=== PATIENT | male | born 1985 | race Caucasian/White ===

== ENCOUNTER 2023-10-12 17:53 | Emergency (ER) | payer MEDICAID, SELFPAY ==
--- NOTE | ~2023-10-12 | XR_ITS ---
EXAMINATION: XR CHEST CLINICAL INFORMATION: Chest pain COMPARISON: None available. TECHNIQUE: 2 views of the chest were obtained. FINDINGS: No significant abnormality is noted involving the heart, lungs, mediastinum, bony thorax or soft tissues. XR/XR chest 2V IMPRESSION: Unremarkable examination.
--- NOTE | 2023-10-12 17:54 | ECG_ITS ---
Test Reason : cp Blood Pressure : / mmHG Vent. Rate : 106 BPM Atrial Rate : 106 BPM P-R Int : 130 ms QRS Dur : 102 ms QT Int : 352 ms P-R-T Axes : 065 063 005 degrees QTc Int : 467 ms Sinus tachycardia Otherwise normal ECG No previous ECGs available Referred By: Sunshine Lei Electronically Signed By:Joshua Morin
[2023-10-12 18:23] VITALS: BP 147/107; PULSE 81; RESP 16; TEMP 36.6; O2SAT 100; BMI 27.9
--- NOTE | 2023-10-12 18:23 | ED.GENADULT ---
HPI - General Adult General Chief complaint: Chest Pain Stated complaint: chest pain, SOB Time Seen by Provider: 10/13/23 05:56 History of Present Illness HPI narrative: Patient was seen during downtime, please see paper record Related Data Allergies Allergy/AdvReac Type Severity Reaction Status Date / Time No Known Allergies Allergy Verified 10/12/23 18:23 [facility] Social History Social History Advance Directives: No Advance Directives Information Provided: No Physical Exam ED Vital Signs: Vital Signs - 24 hr 10/12/23 18:23 10/12/23 23:34 Temperature 97.9 F 97.7 F Pulse Rate 81 85 Respiratory Rate 16 16 Blood Pressure 147/107 H 151/94 H Pulse Oximetry 100 100 Oxygen Delivery Method Room Air Room Air BMI result Body Mass Index 27.9 Course Course Course Narrative: This is an RME: Additional HPI, ROS, PE not included below will be deferred to primary provider. This is a [id number]-male, with no known medical problems (however does not go to a doctor), who presents to the ER with complaints of chest pain and shortness of breath. Pulsating left upper chest pain into his left shoulder. Was driving and felt dull pain. Pain comes and goes. Does not have pain now. Dull pulsating sensation. Endorsing some lightheadedness Plan: Labs, EKG, CXR Medical Decision Making Medical Decision Making MDM Narrative: Patient seen during downtime, please see paper record Hypertension, anxiety. -patient reports hypertension for over a year, unable to see a PCP due to health insurance issues. -asymptomatic at this time, willing to start blood pressure medications. Differential Diagnosis Differential Diagnoses: The differential diagnosis associated with the presentation includes (Anxiety, hypertension, hypertensive urgency) Admission/Observation Consideration of admission/observation: Escalation of care including admission/observation considered (New diagnosis hypertension, unable to follow-up with PCP, will follow up with urgent care/walk-in clinic) Lab Data 10/12/23 18:41 10/12/23 18:41 Labs: Lab Results 10/12/23 Range/Units 18:41 WBC 4.9 (4.8-10.8) X10*3/uL RBC 5.59 (4.60-5.80) X10*6/uL Hgb 15.6 (14.0-18.0) g/dl Hct 46.2 (42.0-52.0) % MCV 82.6 (80.0-98.0) fL MCH 27.9 (27.0-33.0) pg MCHC 33.8 (31.0-36.0) g/dl RDW 12.3 (11.0-16.0) % Plt Count 210 (160-400) X10*3/uL MPV 10.3 (9.4-12.4) fL Immature Gran % (Auto) 0.4 (0.0-0.4) % Neut % (Auto) 54.9 (45-73) % Lymph % (Auto) 34.4 (20-40) % Bleck[place] % (Auto) 6.0 (2-11) % Eos % (Auto) 3.3 (0-4) % Baso % (Auto) 1.0 (0-2) % Lymph # (Auto) 1.7 (1.2-4.9) X10*3/uL [place] # (Auto) 0.3 (0.1-1.2) X10*3/uL Eos # (Auto) 0.2 (0.0-0.4) X10*3/uL Baso # (Auto) 0.1 (0.0-0.2) X10*3/uL Abs Immat Gran (auto) 0.02 (0.00-0.03) X10*3/uL Absolute Neuts (auto) 2.7 (2.0-8.3) x10*3/uL Absolute Nucleated RBC 0.000 (0.0-0.012) X10*3/uL Nucleated RBC % (auto) 0.0 (0.0-0.2) /100WBC Sodium 139 (135-145) mmol/L Potassium 4.0 (3.3-5.1) mmol/L Chloride 104 (96-108) mmol/L Carbon Dioxide 27 (22-29) mmol/L Anion Gap 12 (12-20) BUN 12 (9-16) mg/dL Creatinine 1.04 (0.5-1.4) mg/dL Estim Creat Clear Calc 108.7 Estimated GFR > 60 Random Glucose 110 (60-115) mg/dL Calcium 9.7 (8.4-10.2) mg/dL Magnesium 1.9 (1.6-2.6) mg/dL Total Bilirubin 0.4 (0.0-1.0) mg/dL Direct Bilirubin 0.2 (0.0-0.5) mg/dL AST 20 (5-37) U/L ALT 42 H (0-40) U/L Alkaline Phosphatase 73 (39-117) U/L Troponin I High Sens < 2.7 (<3.5-35.0) ng/L Total Protein 7.5 (6.5-8.0) g/dL Albumin 4.6 (3.5-5.0) g/dL Lipase 14 (8-78) U/L Critical Care Time Critical Care Time Critical Care Time: Yes Total Critical Care Time: 35 Attestation: I have personally provided critical care time. Time includes review of lab data, radiology results, discussion with consultants, and monitoring for potential decompensation. Intervention performed as documented. Discharge Plan Discharge Clinical Impression: Atypical chest pain, Hypertension Patient Disposition: Home, Self-Care
[2023-10-12 18:51] LABS: MANUAL DIFF FLAG NO
[2023-10-12 18:54] LABS: Basophils Absolute Auto 0.1 X10*3/uL (0.0-0.2); Eosinophils Absolute Auto 0.2 X10*3/uL (0.0-0.4); Eosinophils Percent Auto 3.3 % (0-4); Hematocrit 46.2 % (42.0-52.0); Hemoglobin 15.6 g/dl (14.0-18.0); Imm Gran Abs Auto 0.02 X10*3/uL (0.00-0.03); Imm Gran Pct Auto 0.4 % (0.0-0.4); Lymphocytes Absolute Auto 1.7 X10*3/uL (1.2-4.9); Lymphocytes Percent Auto 34.4 % (20-40); Mean Corpuscular HGB Conc 33.8 g/dl (31.0-36.0); Mean Corpuscular Hemoglobin 27.9 pg (27.0-33.0); Mean Corpuscular Volume 82.6 fL (80.0-98.0); Mean Platelet Volume 10.3 fL (9.4-12.4); Monocytes Absolute Auto 0.3 X10*3/uL (0.1-1.2); Neutrophils Absolute Auto 2.7 x10*3/uL (2.0-8.3); Neutrophils Percent Auto 54.9 % (45-73); Platelet Count 210 X10*3/uL (160-400); Red Blood Count 5.59 X10*6/uL (4.60-5.80); Red Cell Distribution Width 12.3 % (11.0-16.0); White Blood Count 4.9 X10*3/uL (4.8-10.8)
[2023-10-12 19:09] LABS: Alanine Aminotransferase 42 U/L (0-40); Albumin Level 4.6 g/dL (3.5-5.0); Alkaline Phosphatase 73 U/L (39-117); Anion Gap 12 (12-20); Aspartate Amino Transferase 20 U/L (5-37); Bilirubin Direct 0.2 mg/dL (0.0-0.5); Bilirubin Total 0.4 mg/dL (0.0-1.0); Blood Urea Nitrogen 12 mg/dL (9-16); Calcium 9.7 mg/dL (8.4-10.2); Carbon Dioxide 27 mmol/L (22-29); Chloride 104 mmol/L (96-108); Creatinine Clr Calc Pharmacy 108.7; Estimated Glomerular Filt Rate > 60; Glucose Random 110 mg/dL (60-115); Lipase 14 U/L (8-78); Magnesium 1.9 mg/dL (1.6-2.6); Sodium 139 mmol/L (135-145); Total Protein 7.5 g/dL (6.5-8.0)
[2023-10-12 19:16] LABS: Troponin-I High Sensitivity < 2.7 ng/L (<3.5-35.0)
[2023-10-12 23:34] VITALS: BP 151/94; PULSE 85; RESP 16; TEMP 36.5; O2SAT 100
== END 2023-10-13 05:56 | disposition home or self-care (01) ==
PROVIDERS: Physician Assistant Medical; Emergency Provider Emergency Medicine
DX: R07.89 Other chest pain (principal); I10 Essential (primary) hypertension; R06.02 Shortness of breath
CPT/HCPCS: 36415; 71046; 80048; 80076; 83690; 83735; 84484; 85025; 93005; 99283; 99284

== ENCOUNTER → 2023-10-12 17:54 | Outpatient (BNV) | payer MEDICAID, SELFPAY | PROVIDERS: Emergency Provider Emergency Medicine; Visit Provider Internal Medicine Cardiovascular Disease | DX: R07.9 Chest pain, unspecified (principal) | CPT/HCPCS: 93010 ==

== ENCOUNTER 2023-10-25 08:46 | Outpatient (AMB) | payer OTHER, SELFPAY ==
--- NOTE | 2023-10-25 08:51 | MHC.PC.OV ---
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 Requesting sleep study. 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 He is transferring from [facility] (last seen about 10 years ago). He has a significant past medical history of hypertension, tobacco use, IBS, anxiety and depression. CV: Blood pressure today in the office is 126/72. He states at home is normal and yesterday was 115/72. He is currently on hydrochlorothiazide 25 mg. He was seen in the ER on 10/11 with complaints of atypical chest pain and was noted to have hypertension. Chest x-ray and labs were overall WNL, aside from a slightly elevated lft. There he was started on the hydrochlorothiazide. He does not like how much he urinates. He is wonders if he could try propranolol because his brother is on this for anxiety and his htn. -has not needed an inhaler since childhood for one episode of wheezing. -he does report witnessed apneic events by brother and roommate. -denies any cp, sob, palpitations since ED. Psych: He states his anxiety is currently exacerbated. He states that he has had this since childhood and when he gets anxious feels like his heart is racing but it really is not. He states that he is checked it before and it has been between 90 and 100. He is stressed financially. 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 He has not been on medications since childhood. He states that he has a hx of anxiety and depression for most of his life. He was on wellbutrin, prozac, and clonidine in the past (together and separately). He has never been hospitalized. No hx of SI/HI. Denies visual and auditory hallucinations. His brother has schizophrenia. He used to follow with a therapist and does not feel that he needs to see . Derm: He states that he has patches of eczema that have been present since winter. He has been using Eucerin cream without significant improvement. He states he has a little bit behind his left ear and on the sides of his axillary region. There is no pain. There is slight itching. Denies any change in hygiene products, recent travel or contacts with similar symptoms. [facility] Medical History (Updated 10/25/23 @ 09:46 by Tabitha Fabian PA-C) Atopic dermatitis Witnessed episode of apnea Elevated LFTs HTN (hypertension), benign Hernia Family History (Updated 10/25/23 @ 09:14 by Luz Montoya CMA) Mother HTN (hypertension) Substance abuse Mental disorder Father HTN (hypertension) AA (alcohol abuse) Substance abuse Mental disorder Paternal Grandmother HTN (hypertension) Hypercholesterolemia Brother Substance abuse Mental disorder Social History Housing: Apartment Patient Tobacco Use Status: Former Tobacco user Cigarette Packs Per Day: 0.5 Cigarettes Per Day: 0.5 Years Smoked: 15 e-Cigarette/Vaping Use: Currently Using service: No Current occupational status: employed Current occupation: [employer] Current occupational exposures/hazards: No Cognitive needs: No Hearing needs: No Vision needs: No Questionnaire PHQ-9 Over the last 2 weeks, how often have you been bothered by any of the following problems? 1. Little interest or pleasure in doing things: several days 2. Feeling down, depressed, or hopeless: more than half the days 3. Trouble falling or staying asleep, or sleeping too much: more than half the days 4. Feeling tired or having little energy: several days 5. Poor appetite or overeating: several days 6. Feeling bad about yourself - or that you are a failure or have let yourself or your family down: several days 7. Trouble concentrating on things, such as reading the newspaper or watching television: several days 8. Moving or speaking so slowly that other people could have noticed. Or the opposite - being so fidgety or restless that you have been moving around a lot more than usual: several days 9. Thoughts that you would be better off or of hurting yourself in some way: not at all Total score: 10 Depression Screening Interpretation: Positive Depression Screening Follow-up: Existing condition, New Medication prescribed and Follow-up Visit Requested Depression Screening Done: Yes 82405 - PHQ-9 Billing: Yes Source: Developed by Drs. Norman Cobb, Allie Stahl, Dash Barajas and colleagues, with an educational renate from [employer]. Thrive Questionnaire Date Thrive assessed: 10/25/23 I am a: Patient What is your living situation today?: I have a steady place to live Within the past 12 months, did the food you bought not last and you didn't have the money to get more?: Never true Do you have trouble paying for medicines?: No Do you have trouble getting transportation to medical appointments?: No Do you have trouble paying your heating and electricity bill?: No Do you have trouble taking care of your child, family member or friend?: No Do you have trouble with day-to-day activities such as bathing, preparing meals, shopping, managing finances, etc.?: No Are you currently unemployed and looking for a job?: No Are you interested in more education?: No Please select the resources that you would like help with: None Currently or been in a relationship where the following occur: no concerns reported THRIVE Score: 0 AUDIT C Alcohol Use Questionnaire (AUDIT-C) 1. How often do you have a drink containing alcohol?: Monthly or less 2. How many drinks containing alcohol do you have on a typical day when you are drinking?: 3 or 4 3. How often do you have six or more drinks on one occasion?: Never Total Score: 2 ELLEN-7 AMB Questionnaire ELLEN-7 Date ELLEN - 7 assessed: 10/25/23 Feeling nervous, anxious, or on edge: 2 = More than half the days Not being able to stop or control worryin = More than half the days Worrying too much about different things: 2 = More than half the days Trouble relaxin = More than half the days Being so restless that it is hard to sit still: 1 = Several days Becoming easily annoyed or irritable: 2 = More than half the days Feeling afraid as if something awful might happen: 1 = Several days Total ELLEN-7 score (0-4 normal; 5-9 mild; 10-14 moderate; 15-21 severe): 12 Source: Developed by Drs. Norman Cobb, Allie Stahl, Dash Barajas and colleagues, with an educational renate from [employer]. ELLEN-7 Assessment Billing ELLEN-7 Assessment Tool: ELLEN-7 Assessment 20810 ACT Questionnaire In the past 4 weeks, how much of the time did your asthma keep you from getting as much done at work, school or at home?: None of the time During the past 4 weeks, how often have you had shortness of breath?: 1-2 times a week During the past 4 weeks, how often did your asthma symptoms wake you up at night or earlier than usual in the morning?: Not at all During the past 4 weeks, how often have you had to use your rescue inhaler or nebulizer medication?: Not at all How would you rate your asthma control during the past 4 weeks?: Well controlled ACT Interpretation: Positive Score: 23 Physical exam (Primary Care) Vital Signs: Last Vital Signs Temp 98.1 F 10/25/23 08:59 Pulse 99 10/25/23 08:59 Resp 14 10/25/23 08:59 BP 126/72 10/25/23 08:59 Pulse Ox 98 10/25/23 08:59 Oxygen Delivery Method Room Air 10/25/23 08:59 BMI result Body Mass Index 28.4 BMI Assessment/Plan discussion: High BMI High, discussed plan: lifestyle, dietary and physical activity Tobacco/Smoking Status: Tobacco use Status Tobacco use date assessed 10/25/23 10/25/23 08:59 Patient Tobacco Use Status Former Tobacco user 10/25/23 08:59 e-Cigarette/Vaping Use Currently Using 10/25/23 08:59 Are you ready to quit: No Tobacco cessation counseling provided: Yes PHQ-9: PHQ-9 Score PHQ-9: Total score 10 10/25/23 09:16 Depression Screening Interpretation: Positive Depression Screening Follow-up: Existing condition, New Medication prescribed and Follow-up Visit Requested Thrive Assessment: Date of Thrive Assessment Date Thrive assessed 10/25/23 10/25/23 09:16 Currently or been in a relationship where the following occur: no concerns reported Const Orientation/consciousness: patient oriented x3 HENMT Ears: hearing grossly normal bilaterally Neck Thyroid: Thyroid normal Lymphatic: no lymphadenopathy noted Resp Auscultation: clear to auscultation bilaterally Cardio Rate: regular rate Rhythm: regular rhythm Heart sounds: S1 normal heart sound present and S2 normal heart sound present GI Inspection: Yes normal to inspection Palpation (GI): Soft to palpation and Other GI palpation findings present (nontender, no cva tenderness) Auscultation: normoactive bowel sounds Rectal Exam - Male: Yes deferred Skin Other: The skin in the posterior aspect of the left pinna is slightly erythematous and flaky. The skin on the left upper torso, just distal to the left axilla is erythematous, slightly papular, flaky, nontender. Neuro General: patient oriented x3, gait normal and no focal motor deficits Assessment and Plan Assessment & Plan (1) HTN (hypertension), benign: Code(s): I10 - Essential (primary) hypertension Plan: did not tolerated hctz. wants to try propranolol. We discussed risks and benefits and adverse effects of this medication. Advised to return in 2-3 weeks for a blood pressure recheck. (2) Elevated LFTs: Code(s): R79.89 - Other specified abnormal findings of blood chemistry Plan: Slightly elevated at the ER. We will recheck. Lipids ordered as well. We also discussed dietary modifications. (3) Witnessed episode of apnea: Code(s): R06.81 - Apnea, not elsewhere classified Plan: Sleep study ordered. Did discuss that this could be contributing to hypertension. (4) Atopic dermatitis: Code(s): L20.9 - Atopic dermatitis, unspecified Plan: We will start triamcinolone cream. Discussed risks and benefits adverse effects such as atrophy of the skin with prolonged use. Orders: Orders Comprehensive [place]. Panel Fast Today I10 - Essential (primary) hypertension, R06.81 - Apnea, not elsewhere classified, R79.89 - Other specified abnormal findings of blood chemistry TSH reflex Free T4 Today I10 - Essential (primary) hypertension, R06.81 - Apnea, not elsewhere classified, R79.89 - Other specified abnormal findings of blood chemistry Lipid Panel Today I10 - Essential (primary) hypertension, R06.81 - Apnea, not elsewhere classified, R79.89 - Other specified abnormal findings of blood chemistry RT home sleep study Today Medications: New propranolol 10 mg PO BID 90 days 180 tabs 0RF triamcinolone acetonide 0.05% apply to affected area bid x 2 weeks. 1 appl topical BID 2 weeks 110 grams 2RF Coding Level of Care Code New Pt Level 4 (10655) Diagnoses HTN (hypertension), benign I10 Elevated LFTs R79.89 Witnessed episode of apnea R06.81 Atopic dermatitis L20.9 Additional Codes ELLEN-7 Assessment Billing - ELLEN-7 Assessment Tool: ELLEN-7 Assessment 35252 ([id number])
[2023-10-25 08:59] VITALS: BP 126/72; PULSE 99; RESP 14; TEMP 36.7; O2SAT 98; BMI 28.4
== END 2023-10-25 09:51 | disposition home or self-care (01) ==
PROVIDERS: PCP Physician Assistant; Visit Provider Physician Assistant
DX: I10 Essential (primary) hypertension (principal); R74.01 Elevation of levels of liver transaminase levels; R06.81 Apnea, not elsewhere classified; L20.9 Atopic dermatitis, unspecified
CPT/HCPCS: 99204

== ENCOUNTER 2023-11-09 13:51 | Outpatient (AMB) | payer OTHER, SELFPAY ==
--- NOTE | 2023-11-09 14:02 | A.OFFPC_ITS ---
Vital Signs 11/09/23 14:07 Height 5 ft 10 in Weight 198 lb 8 oz BMI 28.5 BP 114/72 Blood Pressure Location Rt brachial Position Sitting Respiration 14 Pulse 72 Pulse Source Pulse Oximeter Temp 98.1 F Temp Source Oral Pulse Oximetry (%) 98 Oxygen Delivery Method Room Air Intake Visit Reasons: bp check Intake Note: Blood pressure follow up. Would like patches or something to help quit smoking. Needs a new referral to Sleep Study in home. Doesn't want to do it at home. Did not have a chance to get labs done. Stops Breathing when hyper focused. Allergies Penicillins Allergy (Unknown, Verified 11/09/23 14:05) Nausea and Vomiting Medication List - Last Reconciled 11/09/23 by Tabitha Fabian PA-C propranolol 10 mg PO BID 90 days triamcinolone acetonide 0.05% 1 appl topical BID 2 weeks Tobacco use date assessed: 10/25/23 Dental Screening Dental Screen Date: 10/25/23 HPI bp check HPI Details Patient is a 38-year-old male who presents today for a follow up of bp and eczema. He has a significant past medical history of hypertension, tobacco use, IBS, anxiety and depression. -he has not yet done the sleep study and states that he needs to do this in a lab not at home. He also has not yet had time to get labs and tells me he will do this next week. CV: Blood pressure today in the office is 114/ 72. He was started on propranolol recently for htn and anxiety. He states that over the 4-6 months he states that he has noted chest pain at rest. He states it feels like a squeezing sensation in his chest that lasts for a few seconds. He does not think it is ever happened with exertion. It has become more persistent and noticeable over the last month or 2. He states that that is why he went to the ER in September. He had labs, an EKG and chest x-ray which were overall reassuring and negative for any signs of ischemia. He is currently asymptomatic but last experienced this about a week ago while driving. He does endorse a fear of driving. Not related to food. No edema, syncope, or king. No diaphoresis or nausea. . Denies any known family history of CAD or CVAs. Psych: He states his anxiety is currently better with the propranolol. He states that he would like to go back on Wellbutrin because in the past it was helpful for anxiety, depression and smoking. He would like to quit smoking. He has never been hospitalized. No hx of SI/HI. Denies visual and auditory hallucinations. His brother has schizophrenia. He used to follow with a therapist and does not feel that he needs to see . Derm: At our last visit he was started on triamcinolone cream for eczema which he states has resolved his skin issues. [facility] Medical History (Updated 11/09/23 @ 14:56 by Tabitha Fabian PA-C) Mild recurrent major depression Generalized anxiety disorder Atopic dermatitis Witnessed episode of apnea Elevated LFTs HTN (hypertension), benign Hernia Family History (Updated 10/25/23 @ 09:14 by Luz Montoya CMA) Mother HTN (hypertension) Substance abuse Mental disorder Father HTN (hypertension) AA (alcohol abuse) Substance abuse Mental disorder Paternal Grandmother HTN (hypertension) Hypercholesterolemia Brother Substance abuse Mental disorder Social History Housing: Apartment Patient Tobacco Use Status: Former Tobacco user Cigarette Packs Per Day: 0.5 Cigarettes Per Day: 0.5 Years Smoked: 15 e-Cigarette/Vaping Use: Currently Using service: No Current occupational status: employed Current occupation: [employer] for [employer] services Current occupational exposures/hazards: No Cognitive needs: No Hearing needs: No Vision needs: No Questionnaire Thrive Questionnaire Date Thrive assessed: 10/25/23 ELLEN-7 AMB Questionnaire ELLEN-7 Date ELLEN - 7 assessed: 10/25/23 Source: Developed by Drs. Norman Cobb, Allie Stahl, Dash Barajas and colleagues, with an educational renate from [employer]. Physical exam (Primary Care) Vital Signs: Last Vital Signs Temp 98.1 F 11/09/23 14:07 Pulse 72 11/09/23 14:07 Resp 14 11/09/23 14:07 BP 114/72 11/09/23 14:07 Pulse Ox 98 11/09/23 14:07 Oxygen Delivery Method Room Air 11/09/23 14:07 BMI result Body Mass Index 28.5 BMI Assessment/Plan discussion: High BMI High, discussed plan: lifestyle, weight reduction, dietary and physical activity Tobacco/Smoking Status: Tobacco use Status Tobacco use date assessed 10/25/23 11/09/23 14:10 Patient Tobacco Use Status Former Tobacco user 11/09/23 14:10 e-Cigarette/Vaping Use Currently Using 11/09/23 14:10 Are you ready to quit: Yes Tobacco cessation counseling provided: Yes Items discussed: Nicotine replacement and Other (Medication discussion and hypnosis discussion) Relapse Prevention: discussed the importance of a supportive environment, discussed negative mood or depression after quitting (We will start Wellbutrin.) and discussed dietary, exercise and/or lifestyle changes CPT code: 34213 - 4-10 Minutes Thrive Assessment: Date of Thrive Assessment Date Thrive assessed 10/25/23 11/09/23 14:10 Const Orientation/consciousness: patient oriented x3 HENMT Ears: hearing grossly normal bilaterally Neck Thyroid: Thyroid normal Lymphatic: no lymphadenopathy noted Resp Auscultation: clear to auscultation bilaterally Cardio Rate: regular rate Rhythm: regular rhythm Heart sounds: S1 normal heart sound present and S2 normal heart sound present Skin General skin exam: no rashes or lesions noted Neuro General: patient oriented x3, gait normal and no focal motor deficits Extrem General: Yes normal to inspection and Yes full ROM Assessment and Plan Assessment & Plan (1) HTN (hypertension), benign: Code(s): I10 - Essential (primary) hypertension Plan: WNL. Continue current regimen (2) Witnessed episode of apnea: Code(s): R06.81 - Apnea, not elsewhere classified Plan: Sleep study reordered as in lab. (3) Chest pain, unspecified: Code(s): R07.9 - Chest pain, unspecified Qualifiers: Chest pain type: unspecified Qualified Code(s): R07.9 - Chest pain, unspecified Plan: EKG and chest x-ray reviewed. Stress test ordered. We will follow up pending test results. ? Anxiety component given fear with driving and that most of the time this is occurring at rest and in a car. (4) Generalized anxiety disorder: Code(s): F41.1 - Generalized anxiety disorder Plan: We will start patient on Wellbutrin. We discussed risks and benefits and adverse effects of this medication including worsening anxiety. Patient has tolerated this in the past and states that it was more effective than other medications. He will seek emergent medical treatment should he develop any SI/HI or any severe adverse effects. (5) Mild recurrent major depression: Code(s): F33.0 - Major depressive disorder, recurrent, mild Plan: See above. We will follow up in 4-6 weeks to be reassessed. Sooner if needed. (6) Tobacco abuse: Code(s): Z72.0 - Tobacco use Plan: We will try bupropion. Discussed plans to quit. We also discussed supportive family members and friends. We discussed how to set up for success and other measures such as hypnosis. We also discussed trying other medications if this does not work. Patient understands and agrees with this plan. Orders: Orders RT PSG in-lab sleep study Today R06.81 - Apnea, not elsewhere classified CA stress test Today I10 - Essential (primary) hypertension, R06.81 - Apnea, not elsewhere classified, R07.9 - Chest pain, unspecified Medications: New bupropion HCl XL 150 mg PO QAM 90 tabs 1RF Coding Level of Care Code Est Pt Level 4 (78108) Complex EM visit Add On G2211 Diagnoses HTN (hypertension), benign I10 Witnessed episode of apnea R06.81 Chest pain, unspecified type R07.9 Chest pain type: unspecified Generalized anxiety disorder F41.1 Mild recurrent major depression F33.0 Tobacco abuse Z72.0 Additional Codes Vital Signs *Quality* - CPT code: 74007 - 4-10 Minutes ([id number])
[2023-11-09 14:07] VITALS: BP 114/72; PULSE 72; RESP 14; TEMP 36.7; O2SAT 98; BMI 28.5
== END 2023-11-09 14:42 | disposition home or self-care (01) ==
PROVIDERS: Visit Provider Physician Assistant
DX: I10 Essential (primary) hypertension (principal); F33.0 Major depressive disorder, recurrent, mild; R06.81 Apnea, not elsewhere classified; R07.9 Chest pain, unspecified; F41.1 Generalized anxiety disorder; Z72.0 Tobacco use
CPT/HCPCS: 99214; G2211

== ENCOUNTER 2023-11-17 08:16 | Outpatient (REF) | payer OTHER, SELFPAY ==
[2023-11-17 12:37] LABS: Alanine Aminotransferase 40 U/L (0-40); Albumin Level 4.7 g/dL (3.5-5.0); Alkaline Phosphatase 71 U/L (39-117); Anion Gap 15 (12-20); Aspartate Amino Transferase 19 U/L (5-37); Bilirubin Total 0.6 mg/dL (0.0-1.0); Blood Urea Nitrogen 14 mg/dL (9-16); Calcium 10.4 mg/dL (8.4-10.2); Carbon Dioxide 27 mmol/L (22-29); Chloride 104 mmol/L (96-108); Cholesterol 227 mg/dL (<200); Estimated Glomerular Filt Rate > 60; Glucose Fasting 94 mg/dL (60-99); HDL Cholesterol 51 mg/dL (>40); LDL Cholesterol Calculated 138 mg/dL (<100); Potassium 3.7 mmol/L (3.3-5.1); Sodium 142 mmol/L (135-145); Total Protein 7.7 g/dL (6.5-8.0); Triglycerides 193 mg/dL (<150)
[2023-11-17 12:41] LABS: TSH reflex Free T4 2.32 uIU/mL (0.32-4.0)
== END 2023-11-17 08:17 | disposition home or self-care (01) ==
LOC: HO.WFDLDS 08:16
PROVIDERS: Visit Provider Physician Assistant
DX: I10 Essential (primary) hypertension (principal); R79.89 Other specified abnormal findings of blood chemistry; R06.81 Apnea, not elsewhere classified
CPT/HCPCS: 36415; 80053; 80061; 84443

== ENCOUNTER 2023-11-23 15:19 | Outpatient (AMB) | payer OTHER, SELFPAY ==
--- NOTE | 2023-11-23 15:37 | MHC.PC.OV ---
Vital Signs 11/23/23 15:43 Height 5 ft 10 in Weight 194 lb 6 oz BMI 27.9 BP 110/82 Blood Pressure Location Rt brachial Position Sitting Respiration 16 Pulse 77 Pulse Source Pulse Oximeter Pulse Oximetry (%) 99 Oxygen Delivery Method Room Air Intake Visit Reasons: discuss medication Intake Note: Follow up. Is having arrhythmia possibly from bupropion. He stopped the medication on 11/17/23. Still having sxs so he is wondering if its related to propanolol. He is supposed have stress test Tuesday and sleep study the Tuesday after the stress stress. SOB while exercising. Allergies Penicillins Allergy (Unknown, Verified 11/23/23 15:42) Nausea and Vomiting Medication List - Last Reconciled 11/23/23 by Tabitha Fabian PA-C propranolol 10 mg PO BID 90 days triamcinolone acetonide 0.05% 1 appl topical BID 2 weeks Tobacco use date assessed: 10/25/23 Dental Screening Dental Screen Date: 10/25/23 HPI discuss medication HPI Details Patient is a 38-year-old male who presents today for a follow up of bp and eczema. He has a significant past medical history of hypertension, tobacco use, IBS, anxiety and depression. -he has not yet done the sleep study and states that he needs to do this in a lab not at home. He also has not yet had time to get labs and tells me he will do this next week. CV: Blood pressure today in the office is 110/82. He was started on propranolol recently for htn and anxiety. Initially he felt like the propranolol was helpful but now he feels like it is causing palpitations. We did discuss that it also normally treats palpitations but he tells me he is now more aware of his pulse. He states he can feel it is skipping around and checks all the time. He is worried that he has an arrhythmia. He does have the stress test scheduled next week for his intermittent chest pain. No edema, syncope, or king. No diaphoresis or nausea. . Denies any known family history of CAD or CVAs. He was on hydrochlorothiazide but did not like, she urinated with this prior to starting propranolol. Psych: He was started on Wellbutrin which he thought also caused palpitations so he discontinued this a couple weeks ago. He does not like this medication and wants to try something else for his anxiety and depression. Denies any SI/HI. States that he just feels generally very worried. [facility] Medical History (Updated 11/23/23 @ 16:07 by Luz Montoya CMA) Arrhythmia Palpitations Mild recurrent major depression Generalized anxiety disorder Atopic dermatitis Witnessed episode of apnea Elevated LFTs HTN (hypertension), benign Hernia Family History (Updated 10/25/23 @ 09:14 by Luz Montoya CMA) Mother HTN (hypertension) Substance abuse Mental disorder Father HTN (hypertension) AA (alcohol abuse) Substance abuse Mental disorder Paternal Grandmother HTN (hypertension) Hypercholesterolemia Brother Substance abuse Mental disorder Social History Housing: Apartment Patient Tobacco Use Status: Former Tobacco user Cigarette Packs Per Day: 0.5 Cigarettes Per Day: 0.5 Years Smoked: 15 e-Cigarette/Vaping Use: Currently Using service: No Current occupational status: employed Current occupation: [employer] for [employer] services Current occupational exposures/hazards: No Cognitive needs: No Hearing needs: No Vision needs: No Questionnaire Thrive Questionnaire Date Thrive assessed: 10/25/23 ELLEN-7 AMB Questionnaire ELLEN-7 Date ELLEN - 7 assessed: 10/25/23 Source: Developed by Drs. Norman Cobb, Allie Stahl, Dash Barajas and colleagues, with an educational renate from [facility]. Physical exam (Primary Care) Vital Signs: Last Vital Signs Pulse 77 11/23/23 15:43 Resp 16 11/23/23 15:43 BP 110/82 11/23/23 15:43 Pulse Ox 99 11/23/23 15:43 Oxygen Delivery Method Room Air 11/23/23 15:43 BMI result Body Mass Index 27.9 Tobacco/Smoking Status: Tobacco use Status Tobacco use date assessed 10/25/23 11/23/23 15:37 Patient Tobacco Use Status Former Tobacco user 11/23/23 15:37 e-Cigarette/Vaping Use Currently Using 11/23/23 15:37 Thrive Assessment: Date of Thrive Assessment Date Thrive assessed 10/25/23 11/23/23 15:37 Const Orientation/consciousness: patient oriented x3 HENMT Ears: hearing grossly normal bilaterally Neck Thyroid: Thyroid normal Lymphatic: no lymphadenopathy noted Resp Auscultation: clear to auscultation bilaterally Cardio Rate: regular rate Rhythm: regular rhythm Heart sounds: S1 normal heart sound present and S2 normal heart sound present GI Inspection: Yes normal to inspection Palpation (GI): Soft to palpation and Other GI palpation findings present (nontender, no cva tenderness) Auscultation: normoactive bowel sounds Rectal Exam - Male: Yes deferred Skin General skin exam: no rashes or lesions noted Neuro General: patient oriented x3, gait normal and no focal motor deficits Office Procedures EKG Details: EKG today in the office is normal sinus rhythm at a rate of 77 beats per minute with nonspecific ST or T-wave abnormalities. No significant change from prior study. EKG interpreted by myself. [id number], Complete Results Reviewed Results Reviewed: Laboratory Tests 10/12/23 11/17/23 18:41 08:18 WBC 4.9 RBC 5.59 Hgb 15.6 Hct 46.2 Plt Count 210 Sodium 142 Potassium 3.7 Chloride 104 Carbon Dioxide 27 Anion Gap 15 BUN 14 Creatinine 1.23 Estimated GFR > 60 Fasting Glucose 94 Calcium 10.4 H D Total Bilirubin 0.6 AST 19 ALT 40 Alkaline Phosphatase 71 Total Protein 7.7 Albumin 4.7 Triglycerides 193 H Cholesterol 227 H LDL Cholesterol, Calc 138 H HDL Cholesterol 51 TSH 2.32 Assessment and Plan Assessment & Plan (1) HTN (hypertension), benign: Code(s): I10 - Essential (primary) hypertension Plan: We will discontinue propranolol. We will start lisinopril. Discussed risks and benefits and adverse effects of this medication including electrolyte derangement, cough, dizziness. I will have him follow up in 4 weeks to be reassessed. We will recheck BMP at that visit. Discussed dietary changes. sleep study scheduled (2) Chest pain, unspecified: Code(s): R07.9 - Chest pain, unspecified Qualifiers: Chest pain type: unspecified Qualified Code(s): R07.9 - Chest pain, unspecified Plan: Currently asymptomatic. Stress test is booked. (3) Tobacco abuse: Code(s): Z72.0 - Tobacco use Plan: Has been cutting down on his own. Still vaping. (4) Palpitations: Code(s): R00.2 - Palpitations Plan: Did discuss that this could also be related to the fluctuations in his nicotine and vaping. holter ordered. stress test is scheduled. labs reviewed. (5) Mild recurrent major depression: Code(s): F33.0 - Major depressive disorder, recurrent, mild Plan: he d/c the wellbutrin. will start zoloft. discussed risks and benefits and adverse effects. will start this med one week after starting lisinopril. (6) Generalized anxiety disorder: Code(s): F41.1 - Generalized anxiety disorder Plan: see above Orders: Orders ECG holter monitor 24 hour Today I10 - Essential (primary) hypertension, R00.2 - Palpitations, R07.9 - Chest pain, unspecified, Z72.0 - Tobacco use AMB EKG-In Office Today I49.9 - Cardiac arrhythmia, unspecified Medications: New lisinopril 10 mg PO DAILY 90 tabs 0RF sertraline (Zoloft) take 1/2 tab po x 1 week then increase to 1 tab daily 50 mg PO DAILY 30 tabs 1RF Coding Level of Care Code Est Pt Level 4 (98293) Complex EM visit Add On G2211 Diagnoses HTN (hypertension), benign I10 Chest pain, unspecified type R07.9 Chest pain type: unspecified Tobacco abuse Z72.0 Palpitations R00.2 Mild recurrent major depression F33.0 Generalized anxiety disorder F41.1 CPT Codes EKG - CPT: 08830-[id number], Complete ([id number])
[2023-11-23 15:43] VITALS: BP 110/82; PULSE 77; RESP 16; O2SAT 99; BMI 27.9
== END 2023-11-23 16:19 | disposition home or self-care (01) ==
PROVIDERS: PCP Physician Assistant; Visit Provider Physician Assistant
DX: I10 Essential (primary) hypertension (principal); F33.0 Major depressive disorder, recurrent, mild; R07.9 Chest pain, unspecified; Z72.0 Tobacco use; R00.2 Palpitations; F41.1 Generalized anxiety disorder
CPT/HCPCS: 93000; 99214; G2211

== ENCOUNTER → 2023-11-30 08:56 | Outpatient (REF) | payer OTHER, SELFPAY ==
--- NOTE | 2023-11-30 09:00 | CA_ITS ---
Acquisition Time: 2023-11-30 09:56:28 Total Exercise Time: 00:08:15 Test Indications: CP Medications: SEE H Protocol: RUDY Max HR: 179 BPM 97% of Pred: 183 BPM Max BP: 164/060 mmHG Max Work Load: 10.1 METS Exercise stress test exercise 8 min 15 sec of Rudy protocol achieving 98% MPHR, with mild SOB, without chest discomfort, with isolated PACs and PVCs, with normotensive response to exercise, without EKG changes. Test reviewed with Dr. Wheeler. Referred By: Tabitha Fabain Overread By: Clau Gtz
== END ==
LOC: HO.CARD 08:56
PROVIDERS: PCP Physician Assistant; Visit Provider Physician Assistant
DX: R07.9 Chest pain, unspecified (principal); I10 Essential (primary) hypertension; R06.81 Apnea, not elsewhere classified
CPT/HCPCS: 93017

== ENCOUNTER → 2023-11-30 09:00 | Outpatient (BNV) | payer OTHER, SELFPAY | PROVIDERS: PCP Physician Assistant; Visit Provider Nurse Practitioner | DX: R06.02 Shortness of breath (principal); I49.1 Atrial premature depolarization; I49.3 Ventricular premature depolarization | CPT/HCPCS: 93016; 93018 ==

== ENCOUNTER 2024-01-25 15:07 | Outpatient (AMB) | payer OTHER, SELFPAY ==
[2024-01-25 15:25] VITALS: BP 118/72; PULSE 86; RESP 14; O2SAT 98; BMI 27.6
--- NOTE | 2024-01-25 15:25 | A.OFFPC_ITS ---
Vital Signs 01/25/24 15:25 Height 5 ft 10 in Weight 192 lb 2 oz BMI 27.6 BP 118/72 Blood Pressure Location Rt brachial Respiration 14 Pulse 86 Pulse Source Pulse Oximeter Pulse Oximetry (%) 98 Oxygen Delivery Method Room Air Intake Visit Reasons: bp check Intake Note: Follow up. Has been averaging 120/80 Allergies Penicillins Allergy (Unknown, Verified 01/25/24 15:27) Nausea and Vomiting Medication List - Last Reconciled 01/25/24 by Tabitha Fabian PA-C lisinopril 10 mg PO DAILY sertraline 50 mg PO DAILY Tobacco use date assessed: 10/25/23 Dental Screening Dental Screen Date: 10/25/23 HPI bp check HPI Details Pt is a 38 y/o male who presents today for a follow up. CV: bp is 118/72 today. he states he is tolerating the lisinopril well. last cholesterol came back elevated. he states he has made small diet changes. he has increased the amount fruits and vegetables. He is trying to better with the salad dressings. -sleep study is booked for Tuesday. Derm: eczema well controlled with cream intermittently. GI: He does complain today of loose stools, diarrhea, mucous in the stools on and off for the last 2 years. He states that it is getting worse. He has tried changing his diet without significant improvement. He states that when it flares up he will lose a couple pounds. He thinks he has IBD. He states that he will get bright red blood per rectum with wiping only when he has had days of frequent loose stools. No n/v. He states he definitely does not tolerate beer or high fat foods they will trigger diarrhea. He does get constipation sometimes with this as well. He states his sx are happening every other week. No recent travel. No recent antibiotics. Never had a colonoscopy. States he is very uncomfortable talking about this. No fam hx of colon ca or IBD. [facility] Medical History (Updated 01/25/24 @ 15:48 by Tabitha Fabian PA-C) Arrhythmia Palpitations Mild recurrent major depression Generalized anxiety disorder Atopic dermatitis Witnessed episode of apnea Elevated LFTs HTN (hypertension), benign Hernia Family History (Updated 10/25/23 @ 09:14 by Luz Montoya CMA) Mother HTN (hypertension) Substance abuse Mental disorder Father HTN (hypertension) AA (alcohol abuse) Substance abuse Mental disorder Paternal Grandmother HTN (hypertension) Hypercholesterolemia Brother Substance abuse Mental disorder Social History Housing: Apartment Patient Tobacco Use Status: Former Tobacco user Cigarette Packs Per Day: 0.5 Cigarettes Per Day: 0.5 Years Smoked: 15 e-Cigarette/Vaping Use: Currently Using service: No Current occupational status: employed Current occupation: [employer] for [employer] services Current occupational exposures/hazards: No Cognitive needs: No Hearing needs: No Vision needs: No Questionnaire Thrive Questionnaire Date Thrive assessed: 10/25/23 ELLEN-7 AMB Questionnaire ELLEN-7 Date ELLEN - 7 assessed: 10/25/23 Source: Developed by Drs. Norman Cobb, Allie Stahl, Dash Barajas and colleagues, with an educational renate from [employer] Physical exam (Primary Care) Vital Signs: Last Vital Signs Pulse 86 01/25/24 15:25 Resp 14 01/25/24 15:25 BP 118/72 01/25/24 15:25 Pulse Ox 98 01/25/24 15:25 Oxygen Delivery Method Room Air 01/25/24 15:25 BMI result Body Mass Index 27.6 Tobacco/Smoking Status: Tobacco use Status Tobacco use date assessed 10/25/23 01/25/24 15:26 Patient Tobacco Use Status Former Tobacco user 01/25/24 15:26 e-Cigarette/Vaping Use Currently Using 01/25/24 15:26 Thrive Assessment: Date of Thrive Assessment Date Thrive assessed 10/25/23 01/25/24 15:26 Assessment and Plan Assessment & Plan (1) HTN (hypertension), benign: Code(s): I10 - Essential (primary) hypertension Plan: continue current treatment (2) Witnessed episode of apnea: Code(s): R06.81 - Apnea, not elsewhere classified Plan: sleep study booked on Tuesday (3) Dyslipidemia: Code(s): E78.5 - Hyperlipidemia, unspecified Plan: working on a diet change. (4) Tobacco abuse: Code(s): Z72.0 - Tobacco use Plan: cutting back and working on quitting. does not want anything. (5) Frequent loose stools: Code(s): R19.7 - Diarrhea, unspecified Qualifiers: Diarrhea type: unspecified type Qualified Code(s): R19.7 - Diarrhea, unspecified Plan: We discussed the importance of an elimination diet. He will try a probiotic. Referral to GI. Labs ordered today. We will follow up pending test results. Patient understands and agrees with the plan. Orders: Orders Immunoglobulin A Today E78.5 - Hyperlipidemia, unspecified, R06.81 - Apnea, not elsewhere classified, R19.7 - Diarrhea, unspecified, Z72.0 - Tobacco use Transglutaminase Ab IgG Today E78.5 - Hyperlipidemia, unspecified, R06.81 - Apnea, not elsewhere classified, R19.7 - Diarrhea, unspecified, Z72.0 - Tobacco use Comprehensive Met. Panel Today E78.5 - Hyperlipidemia, unspecified, R06.81 - Apnea, not elsewhere classified, R19.7 - Diarrhea, unspecified, Z72.0 - Tobacco use Endomysial IgA rflx Titer Today E78.5 - Hyperlipidemia, unspecified, R06.81 - Apnea, not elsewhere classified, R19.7 - Diarrhea, unspecified, Z72.0 - Tobacco use Lipid Panel 2 Months E78.5 - Hyperlipidemia, unspecified, R06.81 - Apnea, not elsewhere classified, R19.7 - Diarrhea, unspecified, Z72.0 - Tobacco use Referrals Gastroenterology Referral R19.7 - Diarrhea, unspecified Coding Level of Care Code Est Pt Level 4 (18342) Complex EM visit Add On G2211 Diagnoses HTN (hypertension), benign I10 Witnessed episode of apnea R06.81 Dyslipidemia E78.5 Tobacco abuse Z72.0 Diarrhea, unspecified type R19.7 Diarrhea type: unspecified type
== END 2024-01-25 15:57 | disposition home or self-care (01) ==
PROVIDERS: PCP Physician Assistant; Visit Provider Physician Assistant
DX: I10 Essential (primary) hypertension (principal); R06.81 Apnea, not elsewhere classified; E78.5 Hyperlipidemia, unspecified; Z72.0 Tobacco use; R19.7 Diarrhea, unspecified
CPT/HCPCS: 99214; G2211

== ENCOUNTER → 2024-01-30 20:30 | Outpatient (REF) | payer OTHER, SELFPAY | LOC: HO.SL 20:30 | PROVIDERS: PCP Physician Assistant; Visit Provider Physician Assistant | DX: G47.33 Obstructive sleep apnea (adult) (pediatric) (principal) | CPT/HCPCS: 95810 ==

== ENCOUNTER → 2024-01-30 21:26 | Outpatient (BNV) | payer OTHER, SELFPAY | PROVIDERS: PCP Physician Assistant; Visit Provider Psychiatry & Neurology Neurology | DX: R06.81 Apnea, not elsewhere classified (principal) | CPT/HCPCS: 95810 ==

== ENCOUNTER 2024-05-02 14:55 | Outpatient (AMB) | payer OTHER, SELFPAY ==
--- NOTE | 2024-05-02 14:58 | A.OFFPC_ITS ---
Vital Signs 05/02/24 15:01 Height 5 ft 10 in Weight 191 lb BMI 27.4 BP 118/72 Blood Pressure Location Rt brachial Position Sitting Pulse 88 Pulse Source Pulse Oximeter Pulse Oximetry (%) 99 Oxygen Delivery Method Room Air Intake Visit Reasons: gi issues, bp Intake Note: Follow up blood pressure. Missed GI appt due to car issues. Is rescheduled for June. Seeing sleep medicine next week. 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 CV: Blood pressure today in the office is 118/72. He is currently on lisinopril 10 mg. He is supposed to be working on diet to control his cholesterol. Overdue for recheck lipids. He states he has been horrible with his diet and plans PULM: Has sleep apnea states he has an appointment with sleep medicine next week. GI: Ongoing loose stools and states that he is seeing GI on 06/22. He states that he missed his sooner appointments. He states that the loose stool is occasional. He has tried to keep track of the foods. Pysch: doing well with zoloft. No SI/HI. He does think he would benefit from going up on it as he does feel some anxiety still present but does have an easier time managing this. [facility] Medical History (Updated 01/25/24 @ 15:48 by Tabitha Fabian PA-C) Arrhythmia Palpitations Mild recurrent major depression Generalized anxiety disorder Atopic dermatitis Witnessed episode of apnea Elevated LFTs HTN (hypertension), benign Hernia Family History (Updated 10/25/23 @ 09:14 by Luz Montoya CMA) Mother HTN (hypertension) Substance abuse Mental disorder Father HTN (hypertension) AA (alcohol abuse) Substance abuse Mental disorder Paternal Grandmother HTN (hypertension) Hypercholesterolemia Brother Substance abuse Mental disorder Social History Housing: Apartment Patient Tobacco Use Status: Former Tobacco user Cigarette Packs Per Day: 0.5 Cigarettes Per Day: 0.5 Years Smoked: 15 e-Cigarette/Vaping Use: Currently Using service: No Current occupational status: employed Current occupation: [employer] Current occupational exposures/hazards: No Cognitive needs: No Hearing needs: No Vision needs: No Questionnaire PHQ-9 Over the last 2 weeks, how often have you been bothered by any of the following problems? 1. Little interest or pleasure in doing things: not at all 2. Feeling down, depressed, or hopeless: several days 3. Trouble falling or staying asleep, or sleeping too much: several days 4. Feeling tired or having little energy: several days 5. Poor appetite or overeating: several days 6. Feeling bad about yourself - or that you are a failure or have let yourself or your family down: several days 7. Trouble concentrating on things, such as reading the newspaper or watching television: several days 8. Moving or speaking so slowly that other people could have noticed. Or the opposite - being so fidgety or restless that you have been moving around a lot more than usual: not at all 9. Thoughts that you would be better off or of hurting yourself in some way: not at all Total score: 6 Source: Developed by Drs. Norman Cobb, Allie Stahl, Dash Barajas and colleagues, with an educational renate from [employer]. Thrive Questionnaire Date Thrive assessed: 04/26/24 I am a: Patient What is your living situation today?: I have a steady place to live Within the past 12 months, did the food you bought not last and you didn't have the money to get more?: Never true Within the past 12 months, did you worry whether your food would run out before you got money to buy more?: Never true Do you have trouble paying for medicines?: No Do you have trouble getting transportation to medical appointments?: No Do you have trouble paying your heating and electricity bill?: No Do you have trouble taking care of your child, family member or friend?: No Do you have trouble with day-to-day activities such as bathing, preparing meals, shopping, managing finances, etc.?: No Are you currently unemployed and looking for a job?: No Are you interested in more education?: Yes Please select the resources that you would like help with: Job search/training and Education Currently or been in a relationship where the following occur: No concerns reported THRIVE Score: 0 AUDIT C Alcohol Use Questionnaire (AUDIT-C) 1. How often do you have a drink containing alcohol?: 2-4 times a month 2. How many drinks containing alcohol do you have on a typical day when you are drinking?: 3 or 4 3. How often do you have six or more drinks on one occasion?: Less than monthly Total Score: 4 ELLEN-7 AMB Questionnaire ELLEN-7 Date ELLEN - 7 assessed: 10/25/23 Feeling nervous, anxious, or on edge: 1 = Several days Not being able to stop or control worryin = Several days Worrying too much about different things: 1 = Several days Trouble relaxin = Several days Being so restless that it is hard to sit still: 1 = Several days Becoming easily annoyed or irritable: 2 = More than half the days Feeling afraid as if something awful might happen: 1 = Several days Total ELLEN-7 score (0-4 normal; 5-9 mild; 10-14 moderate; 15-21 severe): 8 Source: Developed by Drs. Norman Cobb, Allie Stahl, Dash Barajas and colleagues, with an educational renate from [employer]. Physical exam (Primary Care) Tobacco/Smoking Status: Tobacco use Status Tobacco use date assessed 10/25/23 05/02/24 14:58 Patient Tobacco Use Status Former Tobacco user 05/02/24 14:58 e-Cigarette/Vaping Use Currently Using 05/02/24 14:58 PHQ-9: PHQ-9 Score PHQ-9: Total score 6 05/02/24 14:58 Thrive Assessment: Date of Thrive Assessment Date Thrive assessed 04/26/24 05/02/24 14:58 Currently or been in a relationship where the following occur: No concerns reported Coding Level of Care Code Est Pt Level 4 (89425) Complex EM visit Add On G2211 Diagnoses HTN (hypertension), benign I10 Diarrhea, unspecified type R19.7 Diarrhea type: unspecified type Dyslipidemia E78.5 Generalized anxiety disorder F41.1 Assessment & Plan Assessment & Plan (1) HTN (hypertension), benign: Code(s): I10 - Essential (primary) hypertension Category: Medical Plan: Continue current regimen (2) Frequent loose stools: Code(s): R19.7 - Diarrhea, unspecified Category: Medical Qualifiers: Diarrhea type: unspecified type Qualified Code(s): R19.7 - Diarrhea, unspecified Plan: Has follow up with GI (3) Dyslipidemia: Code(s): E78.5 - Hyperlipidemia, unspecified Category: Medical Plan: Advised to recheck labs (4) Generalized anxiety disorder: Code(s): F41.1 - Generalized anxiety disorder Category: Medical Plan: Increase Zoloft to 100 mg. Orders: Orders UA CC w/rflx Micro + Cult Today I10 - Essential (primary) hypertension, Z13.220 - Encounter for screening for lipoid disorders Medications: New sertraline (Zoloft) 100 mg PO DAILY 90 tabs 3RF Discontinued sertraline Discontinued Reason: Doctor's Order 50 mg PO DAILY 90 tabs 1RF
[2024-05-02 15:01] VITALS: BP 118/72; PULSE 88; O2SAT 99; BMI 27.4
== END 2024-05-02 15:15 | disposition home or self-care (01) ==
PROVIDERS: PCP Physician Assistant; Visit Provider Physician Assistant
DX: I10 Essential (primary) hypertension (principal); R19.7 Diarrhea, unspecified; E78.5 Hyperlipidemia, unspecified; F41.1 Generalized anxiety disorder

== ENCOUNTER → 2024-05-02 14:55 | Outpatient (BNVA) | payer OTHER, SELFPAY | PROVIDERS: PCP Physician Assistant; Visit Provider Physician Assistant | DX: I10 Essential (primary) hypertension (principal); R19.7 Diarrhea, unspecified; E78.5 Hyperlipidemia, unspecified; F41.1 Generalized anxiety disorder | CPT/HCPCS: 96127; 99212 ==

== ENCOUNTER 2024-05-07 13:31 | Outpatient (AMB) | payer OTHER, SELFPAY ==
--- NOTE | 2024-05-07 13:32 | MHC.OFFVIS ---
Vital Signs 05/07/24 13:35 Height 5 ft 10 in Weight 188 lb 2 oz BMI 27.0 BP 130/90 H Blood Pressure Location Lt brachial Position Sitting Pulse 95 Pulse Source Pulse Oximeter Pulse Oximetry (%) 99 Oxygen Delivery Method Room Air Intake Visit Reasons: INP-NAUN Intake Note: Patient presents in office for a new patient evaluation for obstructive sleep apnea. Video Coordinator Required: No Accompanied by: Self / Same As Patient Allergies Penicillins Allergy (Unknown, Verified 05/07/24 13:35) Nausea and Vomiting Medication List - Last Reconciled 05/07/24 by Carmen Palomino MD lisinopril 10 mg PO DAILY sertraline (Zoloft) 100 mg PO DAILY HPI Comments Details: 39y/o comes further management of sleep apnea. Main complaints-sleep apnea Sleep questionnaire- Difficulty falling asleep-yes Difficulty staying asleep-no Number of [id number] Snoring-yes Witnessed apneas-yes Gasping arousals-no Nocturia-yes GERD-no Vivid dreams-yes rare Acting out dreams -no Abnormal behavior in sleep-no ABnormal movements in sleep-yes Morning headaches-no Excessive daytime sleepiness-yes Daytime naps- yes restless legs- /no Hallucinations- /no sleep paralysis- no Drop attacks- no Sleep study-yes AHI 32 O2 daria 84 % CPAP no Sleep Hygiene- Sleep time-9-12 midnight Wake time - 9.30-10am coffee/stimulant use-1 a day Phone Electronics use-uses it consistently Exercise- walks Bedroom comfort- good ESS-2 PFSH Medical History (Updated 05/07/24 @ 14:32 by Carmen Palomino MD) Obstructive sleep apnea Arrhythmia Palpitations Mild recurrent major depression Generalized anxiety disorder Atopic dermatitis Witnessed episode of apnea Elevated LFTs HTN (hypertension), benign Hernia Family History Mother HTN (hypertension) Substance abuse Mental disorder Father HTN (hypertension) AA (alcohol abuse) Substance abuse Mental disorder Paternal Grandmother HTN (hypertension) Hypercholesterolemia Brother Substance abuse Mental disorder Social History Housing: Apartment Patient Tobacco Use Status: Former Tobacco user Cigarette Packs Per Day: 0.5 Cigarettes Per Day: 0.5 Years Smoked: 15 e-Cigarette/Vaping Use: Currently Using service: No Current occupational status: employed Current occupation: [employer] Current occupational exposures/hazards: No Cognitive needs: No Hearing needs: No Vision needs: No Physical Exam Vital Signs: Last Vital Signs Pulse 95 05/07/24 13:35 BP 130/90 H 05/07/24 13:35 Pulse Ox 99 05/07/24 13:35 Oxygen Delivery Method Room Air 05/07/24 13:35 BMI result Body Mass Index 27.0 Const General: cooperative, healthy appearing, comfortable and no acute distress Nutritional Appearance: average body habitus Orientation/consciousness: patient oriented x3 Eyes Pupils: Equal, round and reactive pupils present Neuro General: patient oriented x3, gait normal, tone normal and moves all extremities Cranial nerves: Yes Facial sensation intact/muscles of mastication intact, Yes Equal, round and reactive pupils present, Yes Bilaterally intact EOM present, Yes Nystagmus not present, Yes Normal facial strength present, Yes Midline tongue present, Yes Symmetric palate elevation present and Yes Ability to bilaterally elevate shoulders present Cognition (Neuro): normal cognition Gait exam (Neuro): Normal gait present Motor exam (neuro): 5/5 motor strength present throughout and Normal motor muscle tone present throughout Deep tendon reflexes (DTR's): Right triceps reflex intensity grade: 2+, Left triceps reflex intensity grade: 2+, Rt Biceps (C5, C6): 2+, Left biceps reflex intensity grade: 2+, Right brachioradialis reflex intensity grade: 2+, Left brachioradialis reflex intensity grade: 2+, Right patellar reflex intensity grade: 2+ and Left patellar reflex intensity grade: 2+ Coordination: [id number] test normal Assessment & Plan Assessment & Plan (1) Obstructive sleep apnea: Comment: AHI 32 O 2 daria 84 % Code(s): G47.33 - Obstructive sleep apnea (adult) (pediatric) Category: Medical Plan I will start him on CPAP at 8 cm and follow up to ensure compliance and therapy response. Discussed sleep hygiene Coding Level of Care Code New Pt Level 4 (96388) Complex EM visit Add On G2211 Diagnoses Obstructive sleep apnea G47.33 [place] Sleepiness Scale Questions Sitting and reading: would never doze Watching TV: would never doze Sitting inactive in a theater, movie etc.: would never doze As a passenger in a car for an hour without break: slight chance of dozing Lying down in the afternoon when circumstances permit: slight chance of dozing Sitting and talking to someone: would never doze Sitting quietly after lunch without alcohol: would never doze In a car, while stopped for a few minutes in the traffic: would never doze ESS < 10: normal, ESS > 12: pathologic: 2
[2024-05-07 13:35] VITALS: BP 130/90; PULSE 95; O2SAT 99; BMI 27.0
== END 2024-05-07 14:02 | disposition home or self-care (01) ==
PROVIDERS: PCP Physician Assistant; Visit Provider Psychiatry & Neurology Neurology
DX: G47.33 Obstructive sleep apnea (adult) (pediatric) (principal)
CPT/HCPCS: 99213; G2211

== ENCOUNTER → 2024-05-07 13:31 | Outpatient (BNVA) | payer OTHER, SELFPAY | PROVIDERS: PCP Physician Assistant; Visit Provider Psychiatry & Neurology Neurology | DX: G47.33 Obstructive sleep apnea (adult) (pediatric) (principal) | CPT/HCPCS: 99212 ==

== ENCOUNTER 2024-10-03 13:56 | Outpatient (AMB) | payer OTHER, SELFPAY ==
--- NOTE | 2024-10-03 13:58 | MHC.OFFVIS ---
Vital Signs 10/03/24 13:59 Height 5 ft 10 in Weight 197 lb BMI 28.3 BP 140/80 H Blood Pressure Location Rt brachial Pulse 90 Pulse Source Pulse Oximeter Pulse Oximetry (%) 98 Oxygen Delivery Method Room Air Intake Visit Reasons: 3m follow up NAUN Intake Note: Patient presents for 3 month follow up NAUN. Compliance in chart. Cigarette Paper Tester Required: No Accompanied by: Self / Same As Patient Allergies Penicillins Allergy (Unknown, Verified 10/03/24 13:59) Nausea and Vomiting HPI Comments Details: 39y/o comes further management of sleep apnea. HST AHI was 32 and Oxygen was [place] at 84%, titration study completed and started on CPAP at 8cmH20. He is still having difficulty falling asleep due to anxiety. 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 He goes to bed at 10:30pm - midnight, and wakes up at 7:40am with 1 bathroom. He started using the CPAP in Jul 2024. He denies Headaches and RLS. His left thumb sometimes goes numb, improves with changing postions. He spontaneously has PVCs, complete cardiac work up, could not tolerate Propanolol. His memory is good. His mood is good, significant improvement since started using CPAP, his energy levels are better. His diet is poor, would like to improve the weekend meals, gets PVCs, when he eats spicy foods, limits caffeine intake. BP is elevated today 140/80, however controlled at home usually 118/72, he has white coat HTN. He officially quit smoking and vaping in 12/2023, and has a history of substance use disorder and now socially will take MJ gummies. He washes his mask, changes his filters and tubing as needed. [facility] Medical History (Updated 10/03/24 @ 14:57 by Shania Cervantes PA-C) Obstructive sleep apnea Arrhythmia Palpitations Mild recurrent major depression Generalized anxiety disorder Atopic dermatitis Witnessed episode of apnea Elevated LFTs HTN (hypertension), benign Hernia Family History Mother HTN (hypertension) Substance abuse Mental disorder Father HTN (hypertension) AA (alcohol abuse) Substance abuse Mental disorder Paternal Grandmother HTN (hypertension) Hypercholesterolemia Brother Substance abuse Mental disorder Social History Housing: Apartment Patient Tobacco Use Status: Former Tobacco user Cigarette Packs Per Day: 0.5 Cigarettes Per Day: 0.5 Years Smoked: 15 e-Cigarette/Vaping Use: Currently Using service: No Current occupational status: employed Current occupation: [employer] for [employer] services Current occupational exposures/hazards: No Cognitive needs: No Hearing needs: No Vision needs: No Physical Exam Vital Signs: Last Vital Signs Pulse 90 10/03/24 13:59 BP 140/80 H 10/03/24 13:59 Pulse Ox 98 10/03/24 13:59 Oxygen Delivery Method Room Air 10/03/24 13:59 BMI result Body Mass Index 28.3 Const General: cooperative, healthy appearing, comfortable and no acute distress Nutritional Appearance: average body habitus Orientation/consciousness: patient oriented x3 Eyes Pupils: Equal, round and reactive pupils present Neuro General: patient oriented x3, gait normal, tone normal and moves all extremities Cranial nerves: Yes Facial sensation intact/muscles of mastication intact, Yes Equal, round and reactive pupils present, Yes Bilaterally intact EOM present, Yes Nystagmus not present, Yes Normal facial strength present, Yes Midline tongue present, Yes Symmetric palate elevation present and Yes Ability to bilaterally elevate shoulders present Cognition (Neuro): normal cognition Gait exam (Neuro): Normal gait present Motor exam (neuro): 5/5 motor strength present throughout and Normal motor muscle tone present throughout Deep tendon reflexes (DTR's): Right triceps reflex intensity grade: 2+, Left triceps reflex intensity grade: 2+, Rt Biceps (C5, C6): 2+, Left biceps reflex intensity grade: 2+, Right brachioradialis reflex intensity grade: 2+, Left brachioradialis reflex intensity grade: 2+, Right patellar reflex intensity grade: 2+ and Left patellar reflex intensity grade: 2+ Coordination: [id number] test normal Results Reviewed Results Reviewed: Severe Obstructed Sleep Apnea AHI was and Oxygen [place] to 84% Titration completed Apr 2024 8cmH20 NAUN Compliance report: 07/06/2024- 10/03/2024 >4hr 63 days and 70% Avg use total 4hours 23min Press 8cmH20 Leaks Max 61.9 AHI 5.5 Assessment & Plan Assessment & Plan (1) Mild recurrent major depression: Code(s): F33.0 - Major depressive disorder, recurrent, mild Category: Medical (2) Generalized anxiety disorder: Code(s): F41.1 - Generalized anxiety disorder Category: Medical (3) Insomnia disorder related to known organic factor: Code(s): G47.00 - Insomnia, unspecified Category: Medical Plan F/U with Labs Difficulty falling asleep Ramelteon 8mg PO daily at bedtime. Orders: Orders Comprehensive Met. Panel 10/03/24 R19.7 - Diarrhea, unspecified Hemoglobin A1c 10/03/24 E78.5 - Hyperlipidemia, unspecified IRON PROFILE 10/03/24 G47.9 - Sleep disorder, unspecified, R53.83 - Other fatigue Homocysteine 10/03/24 G47.9 - Sleep disorder, unspecified, R53.83 - Other fatigue Vitamin D 25-OH Total 10/03/24 F33.0 - Major depressive disorder, recurrent, mild Vitamin B12 and Folate 10/03/24 F33.0 - Major depressive disorder, recurrent, mild Ferritin 10/03/24 F41.1 - Generalized anxiety disorder Complete Blood Count no Diff 10/03/24 E78.5 - Hyperlipidemia, unspecified Methylmalonic Acid 10/03/24 G47.9 - Sleep disorder, unspecified, R53.83 - Other fatigue TSH reflex Free T4 10/03/24 F09 - Unspecified mental disorder due to known physiological condition Medications: New ramelteon Take one 8mg tablet by mouth daily at bedtime. 8 mg PO BEDTIME 30 tabs 0RF difficulty falling asleep MDD 8mg PO daily G47.00 - Insomnia, unspecified Patient Instructions: Sleep Hygiene provided: set a scheduled bedtime and wake time to help regulate the circadian rhythm and balance the release of pituitary hormones. Sleep in a dark room, temperatures below 68 degrees, and no devices n bed. Limit caffeinated products 6 hours prior to bed, and limit fluids 2-4 hours prior to bed. Gentle night yoga, diffusing essential oils, and playing soft music can be relaxing. F/U with labs 6 month f/u. Insomnia and difficulty falling asleep, will try him on Ramelteon 8mg PO at bedtime. Coding Level of Care Code Est Pt Level 4 (13309) Diagnoses Mild recurrent major depression F33.0 Generalized anxiety disorder F41.1 Insomnia disorder related to known organic factor G47.00 Time Spent (min) 25 Comment Improved Sleep
[2024-10-03 13:59] VITALS: BP 140/80; PULSE 90; O2SAT 98; BMI 28.3
== END 2024-10-03 14:42 | disposition home or self-care (01) ==
LOC: HO.HSMS 13:57
PROVIDERS: PCP Physician Assistant; Visit Provider Physician Assistant Medical
DX: F33.0 Major depressive disorder, recurrent, mild (principal); F41.1 Generalized anxiety disorder; G47.00 Insomnia, unspecified
CPT/HCPCS: 99214

== ENCOUNTER → 2024-10-03 13:56 | Outpatient (BNVA) | payer OTHER, SELFPAY | PROVIDERS: PCP Physician Assistant; Visit Provider Physician Assistant Medical | DX: G47.00 Insomnia, unspecified (principal); F33.0 Major depressive disorder, recurrent, mild; F41.1 Generalized anxiety disorder | CPT/HCPCS: 99212 ==

== ENCOUNTER 2024-11-07 08:43 | Outpatient (AMB) | payer OTHER, SELFPAY ==
--- NOTE | 2024-11-07 08:51 | A.OFFPC_ITS ---
Vital Signs 11/07/24 08:54 Height 5 ft 10 in Weight 196 lb 6 oz BMI 28.2 BP 122/74 Blood Pressure Location Lt brachial Position Sitting Respiration 12 Pulse 90 Pulse Source Pulse Oximeter Pulse Oximetry (%) 98 Oxygen Delivery Method Room Air Intake Visit Reasons: anxiety and bp Intake Note: Follow up. Started CPAP end of July that is helping with sleep Allergies Penicillins Allergy (Unknown, Verified 11/07/24 08:53) Nausea and Vomiting Medication List - Last Reconciled 11/07/24 by Tabitha Fabian PA-C lisinopril 10 mg PO DAILY ramelteon 8 mg PO BEDTIME MDD 8mg PO daily sertraline (Zoloft) 100 mg PO DAILY Tobacco use date assessed: 10/25/23 Dental Screening Dental Screen Date: 10/25/23 HPI anxiety and bp HPI Details Patient is a 39-year-old male who presents today for a follow up. CV: Blood pressure today in the office is 122/724. He is currently on lisinopril 10 mg. He is supposed to be working on diet to control his cholesterol. Overdue for recheck lipids. He states he has been a little better with his diet and states that he will get this done this week. PULM: Has sleep apnea states he is doing well with new mask. GI: Ongoing loose stools and states that he was supposed to see GI on 06/22 but had to reschedule. He states that the loose stool is occasional and he has kept better track recently and noted a correlation to hot food. He has not noticed any weight loss. No blood in the stool. No abdominal pain Pysch: doing well with zoloft. No SI/HI. He has a lot of life stressors with fam, money, job, car etc. does not want to see BH. He has good support system. He recently was started on ramelteon from Neurology but has not picked it up yet. Msk: He injured his right foot 2 days ago. He denies any swelling or significant pain with pushing but sometimes he is getting pain with walking/weightbearing. Most of the pain is in the arch and in the forefoot. No instability. No numbness, tingling. [facility] Medical History (Updated 11/07/24 @ 09:15 by Tabitha Fabian PA-C) Obstructive sleep apnea Arrhythmia Palpitations Mild recurrent major depression Generalized anxiety disorder Atopic dermatitis Witnessed episode of apnea Elevated LFTs HTN (hypertension), benign Hernia Family History Mother HTN (hypertension) Substance abuse Mental disorder Father HTN (hypertension) AA (alcohol abuse) Substance abuse Mental disorder Paternal Grandmother HTN (hypertension) Hypercholesterolemia Brother Substance abuse Mental disorder Social History (Updated 11/07/24 @ 09:11 by Luz Motnoya CMA) Housing: Apartment Alcohol intake: current Patient Tobacco Use Status: Former Tobacco user Cigarette Packs Per Day: 0.5 Cigarettes Per Day: 0.5 Years Smoked: 15 e-Cigarette/Vaping Use: Currently Using service: No Current occupational status: employed Current occupation: [employer] Current occupational exposures/hazards: No Cognitive needs: No Hearing needs: No Vision needs: No Questionnaire PHQ-9 Over the last 2 weeks, how often have you been bothered by any of the following problems? 1. Little interest or pleasure in doing things: several days 2. Feeling down, depressed, or hopeless: several days 3. Trouble falling or staying asleep, or sleeping too much: several days 4. Feeling tired or having little energy: not at all 5. Poor appetite or overeating: not at all 6. Feeling bad about yourself - or that you are a failure or have let yourself or your family down: several days 7. Trouble concentrating on things, such as reading the newspaper or watching te levision: several days 8. Moving or speaking so slowly that other people could have noticed. Or the opposite - being so fidgety or restless that you have been moving around a lot more than usual: not at all 9. Thoughts that you would be better off or of hurting yourself in some way: not at all Total score: 5 Depression Screening Interpretation: Positive Depression Screening Follow-up: Existing condition, In treatment and Change in Medication Depression Screening Done: Yes 21517 - PHQ-9 Billing: Yes Source: Developed by Drs. Norman Cobb, Allie Stahl, Dash Barajas and colleagues, with an educational renate from [employer]. Thrive Questionnaire Date Thrive assessed: 11/07/24 I am a: Patient What is your living situation today?: I have a steady place to live Within the past 12 months, did the food you bought not last and you didn't have the money to get more?: Never true Within the past 12 months, did you worry whether your food would run out before you got money to buy more?: Never true Do you have trouble paying for medicines?: No Do you have trouble getting transportation to medical appointments?: No Do you have trouble paying your heating and electricity bill?: No Do you have trouble taking care of your child, family member or friend?: No Do you have trouble with day-to-day activities such as bathing, preparing meals, shopping, managing finances, etc.?: No Are you currently unemployed and looking for a job?: No Are you interested in more education?: Yes Please select the resources that you would like help with: None Currently or been in a relationship where the following occur: No concerns reported THRIVE Score: 0 AUDIT C Alcohol Use Questionnaire (AUDIT-C) 1. How often do you have a drink containing alcohol?: Monthly or less 2. How many drinks containing alcohol do you have on a typical day when you are drinking?: 3 or 4 3. How often do you have six or more drinks on one occasion?: Less than monthly Total Score: 3 Score Reviewed/Action Taken: Yes ELLEN-7 AMB Questionnaire ELLEN-7 Date ELLEN - 7 assessed: 11/07/24 Feeling nervous, anxious, or on edge: 0 = Not at all Not being able to stop or control worryin = Several days Worrying too much about different things: 1 = Several days Trouble relaxin = Several days Being so restless that it is hard to sit still: 0 = Not at all Becoming easily annoyed or irritable: 1 = Several days Feeling afraid as if something awful might happen: 0 = Not at all Total ELLEN-7 score (0-4 normal; 5-9 mild; 10-14 moderate; 15-21 severe): 4 Source: Developed by Drs. Norman Cobb, Allie Stahl, Dash Barajas and colleagues, with an educational renate from [employer] ELLEN-7 Assessment Billing ELLEN-7 Assessment Tool: ELLEN-7 Assessment 38757 Physical exam (Primary Care) Vital Signs: Last Vital Signs Pulse 90 11/07/24 08:54 Resp 12 11/07/24 08:54 BP 122/74 11/07/24 08:54 Pulse Ox 98 11/07/24 08:54 Oxygen Delivery Method Room Air 11/07/24 08:54 BMI result Body Mass Index 28.2 Tobacco/Smoking Status: Tobacco use Status Tobacco use date assessed 10/25/23 11/07/24 08:56 Patient Tobacco Use Status Former Tobacco user 11/07/24 09:11 e-Cigarette/Vaping Use Currently Using 11/07/24 09:11 PHQ-9: PHQ-9 Score PHQ-9: Total score 5 11/07/24 09:07 Depression Screening Interpretation: Positive Depression Screening Follow-up: Existing condition, In treatment and Change in Medication Thrive Assessment: Date of Thrive Assessment Date Thrive assessed 11/07/24 11/07/24 09:11 Currently or been in a relationship where the following occur: No concerns reported Const Orientation/consciousness: patient oriented x3 HENMT Ears: hearing grossly normal bilaterally Neck Thyroid: Thyroid normal Lymphatic: no lymphadenopathy noted Resp Auscultation: clear to auscultation bilaterally Cardio Rate: regular rate Rhythm: regular rhythm Heart sounds: S1 normal heart sound present and S2 normal heart sound present GI Inspection: Yes normal to inspection Palpation (GI): Soft to palpation and Other GI palpation findings present (nontender, no cva tenderness) Auscultation: normoactive bowel sounds Rectal Exam - Male: Yes deferred Skin General skin exam: no rashes or lesions noted Neuro General: patient oriented x3, gait normal, no focal motor deficits, normal s ensation to monofilament and deep tendon reflexes 2+ bilaterally Motor exam (neuro): 5/5 motor strength present throughout Extrem General: Yes normal to inspection, Yes full ROM, Yes capillary refill normal and Yes no clubbing, cyanosis or edema Coding Level of Care Code Est Pt Level 4 (29815) Complex EM visit Add On G2211 Diagnoses Dyslipidemia E78.5 HTN (hypertension), benign I10 Generalized anxiety disorder F41.1 Mild recurrent major depression F33.0 Additional Codes ELLEN-7 Assessment Billing - ELLEN-7 Assessment Tool: ELLEN-7 Assessment 57433 ([id number]) PHQ-9 - 05215 - PHQ-9 Billing: Yes ([id number]) Assessment & Plan Assessment & Plan (1) Dyslipidemia: Code(s): E78.5 - Hyperlipidemia, unspecified Category: Medical Plan: Advised to complete labs. (2) HTN (hypertension), benign: Code(s): I10 - Essential (primary) hypertension Category: Medical Plan: WNL. Continue current regimen (3) Generalized anxiety disorder: Code(s): F41.1 - Generalized anxiety disorder Category: Medical Plan: Stable with his Zoloft. Continue current regimen (4) Mild recurrent major depression: Code(s): F33.0 - Major depressive disorder, recurrent, mild Category: Medical Plan: As above Plan X-ray foot. Follow up pending test results. Orders: Orders 2 XR foot RT min 3V Today M79.671 - Pain in right foot
[2024-11-07 08:54] VITALS: BP 122/74; PULSE 90; RESP 12; O2SAT 98; BMI 28.2
== END 2024-11-07 09:17 | disposition home or self-care (01) ==
LOC: HO.HMCFM 08:44
PROVIDERS: PCP Physician Assistant; Visit Provider Physician Assistant
DX: E78.5 Hyperlipidemia, unspecified (principal); I10 Essential (primary) hypertension; F41.1 Generalized anxiety disorder; F33.0 Major depressive disorder, recurrent, mild

== ENCOUNTER → 2024-11-07 08:43 | Outpatient (BNVA) | payer OTHER, SELFPAY | PROVIDERS: PCP Physician Assistant; Visit Provider Physician Assistant | DX: E78.5 Hyperlipidemia, unspecified (principal); I10 Essential (primary) hypertension; F41.1 Generalized anxiety disorder; F33.0 Major depressive disorder, recurrent, mild; Z79.899 Other long term (current) drug therapy | CPT/HCPCS: 96127; 99212 ==

== ENCOUNTER 2025-04-10 13:22 | Outpatient (AMB) | payer OTHER, SELFPAY ==
--- OUTSIDE RECORDS SUMMARY | 2024-12-27 15:11 | XMS_ITS | Encounter Summary ---
Author Organization [facility] Address [address] [place] [address] [place] [address] Phone Care Team Providers Care Food Safety Auditor Name Role Phone Juliet Lopez REHABILITATION CONSTRUCTION SPECIALIST Unavailable [phone] Aline Serrano DO Unavailable [phone] Tabitha Fabian Primary Care Provider [phone] Encounter Details Date Type Department Care Team (Late st Contact Info) Description 12/27/2024 3:11 PM EDT Hospital Encounter [facility] [address] [place] [phone] Negin Sosa, RAILROAD CONSTRUCTION DIRECTOR [address] [place] [address] [email or web address] Social History Tobacco Use Types Packs/Day Years Used Date Smoking Tobacco: Never Smokeless Tobacco: Never Education Answer Date Recorded Are you interested in more education? Not on abel e 12/27/2024 Are you concerned about learning? Not on file 12/27/2024 No 12/27/2024 No 12/27/2024 Digital Access Answer Date Recorded No 12/27/2024 No 12/27/2024 Reliable internet access at home? Not on file 12/27/2024 Device with a working camera? Not on file Sex and Gender Information Value Date Recorded Sex Assigned at Not on file Legal Sex Male 9:12 PM EDT Gender Identity Not on file Sexual Orientation Not on file documented as of this encounter Plan of Treatment Not on file documented as of this encounter Procedures Procedure Name Priority Date/Time Associated Diagnosis Comments XR FOOT 3 OR MORE VIEWS (LEFT) Urgent/patient waiting 12/27/2024 3:16 PM EDT Left foot pain documented in this encounter Results * XR FOOT 3 OR MORE VIEWS (LEFT) (12/27/2024 3:16 PM EDT) Anatomical Region Laterality Modality Foot Left Computed Radiogr aphy 12/27/2024 3:31 PM EDT Impressions 12/27/2024 3:31 PM EDT No fracture or dislocation. Narrative 12/27/2024 3:31 PM EDT XR FOOT 3 OR MORE VIEWS (LEFT) Referring clinician's provided indication for this examination in [facility]: Pain; Trauma COMPARISON: None FINDINGS: No fracture. Normal alignment. Normal joint spaces. No soft tissue swelling. Procedure Note Haider Perez MD, PhD - 12/27/2024 XR FOOT 3 OR MORE VIEWS (LEFT) Referring clinician's provided indication for this examination in Epic:Pain; Trauma COMPARISON: None FINDINGS: No fracture. Normal alignment. Normal joint spaces. No soft tissueswelling. IMPRESSION: No fracture or dislocation. Negin Sosa RAILROAD CONSTRUCTION DIRECTOR IMG XR LOWER EXTREMITY Final Result documented in this encounter Visit Diagnoses Not on filedocumented in this encounter Care Teams Food Safety Auditor Relationship Specialty Start Date End Date Tabitha Fabian PA [address] [place] [address] PCP - General Physician Fish Housekeeper 12/27/24 Juliet Lopez NP [address] [place] [address] Historical LMR Provider 05/04/17 Aline Serrano DO [address] [place] [address], [address] [place] [address] [email or web address] Historical LMR Provider 05/04/17 documented as of this encounter Additional Source Comments The information contained in this document represents components of the legal health record. It is not the complete legal health record.[facility]
--- NOTE | 2025-04-10 13:38 | MHC.OFFVIS ---
Vital Signs 04/10/25 13:39 Height 5 ft 10 in Weight 196 lb 6 oz BMI 28.2 BP 128/72 Blood Pressure Location Lt brachial Position Sitting Pulse 85 Pulse Source Pulse Oximeter Pulse Oximetry (%) 98 Oxygen Delivery Method Room Air Intake Visit Reasons: 6 mnts f/u Intake Note: Patient present follow up NAUN. No Labs. Compliance in chart(61/90days, >=4hrs-49%, Average Usage- 3hrs 18min, Pressure 8cm, Med Leaks-0.9, AHI-4.2). Accompanied by: Self / Same As Patient Allergies Penicillins Allergy (Unknown, Verified 04/10/25 13:44) Nausea and Vomiting HPI Comments Details: 40 y/o comes further management of NAUN and sleep difficulties. HST AHI was 32 and Oxygen was Daria at 84%, titration study completed and started on CPAP at 8cmH20. NAUN Compliance Report 12/2024- 03/2025 Total use is 61/90days >=4hrs-49% Avg Use 3hrs 18min Pressure 8cm, Med Leaks-0.9, AHI-4.2. He washes his, rinsing hoses, changing filters and fills reservoir with water daily. He has difficulty falling asleep and tried taking Trazadone and Melatonin, both made him drowsy in the morning. He would like to try some other sleep aid to help him fall asleep. Benadryl was not effective. The mask continues to fall off of his face when he goes to the bathroom, it is too lose on his head and pulls it off as he is a side sleeper. He would like to trial a different mask. He still naps 2-3x per week, however for a shorter duration of time 30min- 1hour. 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 He feels pretty good when he wakes up.He denies headaches and RLS symptoms. He has weakness, with paresthesias in his left hand >r. with achiness, digits 1-4 feel numb in the mornings, worse with flexion of the wrists and fine motor coordination activities. He spontaneously has PVCs, complete cardiac work up, could not tolerate Propanolol. He has one cup of coffee daily and one coke in the afternoon. We discussed limiting caffeinated beverages and spicy foods. His memory is stable. He has had significant improvement since started using CPAP, his energy levels have improved. BP is better managed now and he has white coat HTN. He has an alcoholic beverage once in a while celebrations. He is now using pure nicotine extract in a pouch 3mg daily and stopped smoking and or vaping. [facility] Medical History Obstructive sleep apnea Arrhythmia Palpitations Mild recurrent major depression Generalized anxiety disorder Atopic dermatitis Witnessed episode of apnea Elevated LFTs HTN (hypertension), benign Hernia Family History Mother HTN (hypertension) Substance abuse Mental disorder Father HTN (hypertension) AA (alcohol abuse) Substance abuse Mental disorder Paternal Grandmother HTN (hypertension) Hypercholesterolemia Brother Substance abuse Mental disorder Social History Housing: Apartment Alcohol intake: current Patient Tobacco Use Status: Former Tobacco user Cigarette Packs Per Day: 0.5 Cigarettes Per Day: 0.5 Years Smoked: 15 e-Cigarette/Vaping Use: Currently Using service: No Current occupational status: employed Current occupation: [employer] for [employer] Current occupational exposures/hazards: No Cognitive needs: No Hearing needs: No Vision needs: No Physical Exam Vital Signs: Last Vital Signs Pulse 85 04/10/25 13:39 BP 128/72 04/10/25 13:39 Pulse Ox 98 04/10/25 13:39 Oxygen Delivery Method Room Air 04/10/25 13:39 BMI result Body Mass Index 28.2 Const General: cooperative, healthy appearing, comfortable and no acute distress Nutritional Appearance: average body habitus Orientation/consciousness: patient oriented x3 Eyes Pupils: Equal, round and reactive pupils present Neuro General: patient oriented x3, gait normal, tone normal and moves all extremities Cranial nerves: Yes Facial sensation intact/muscles of mastication intact, Yes Equal, round and reactive pupils present, Yes Bilaterally intact EOM present, Yes Nystagmus not present, Yes Normal facial strength present, Yes Midline tongue present, Yes Symmetric palate elevation present and Yes Ability to bilaterally elevate shoulders present Cognition (Neuro): normal cognition Gait exam (Neuro): Normal gait present Motor exam (neuro): 5/5 motor strength present throughout and Normal motor muscle tone present throughout Psych Appearance: grossly normal Speech and movement: Normal speech and movement present Attitude: cooperative Thought content: Normal thought content present Results Reviewed Results Reviewed: NAUN Compliance Report 12/2024- 03/2025 Total use is 61/90days >=4hrs-49% Avg Use 3hrs 18min Pressure 8cm, Med Leaks-0.9, AHI-4.2. He washes his, rinsing hoses, changing filters and fills reservoir with water daily. Assessment & Plan Assessment & Plan (1) Obstructive sleep apnea: Comment: AHI 32 O 2 daria 84 % Code(s): G47.33 - Obstructive sleep apnea (adult) (pediatric) Category: Medical (2) Insomnia disorder related to known organic factor: Code(s): G47.00 - Insomnia, unspecified Category: Medical (3) Mild recurrent major depression: Code(s): F33.0 - Major depressive disorder, recurrent, mild Category: Medical (4) Generalized anxiety disorder: Code(s): F41.1 - Generalized anxiety disorder Category: Medical (5) Paresthesia of hand, bilateral: Code(s): R20.2 - Paresthesia of skin Category: Medical Plan NAUN on cpap therapy 8cmH20 and f/u for compliance, compliance is reviewed and >4 hours daily. He is requesting new mask for his face as his old one is very lose and fall off of his face. NCS/EMG study CTS ? Parasthesias weakness of the hands bilaterally. Difficulty with falling asleep Ramelteon 8mg PO daily at bedtime. F/U in 3 months. Orders: Orders NE nerve conduction velocity Today F41.1 - Generalized anxiety disorder, R20.2 - Paresthesia of skin NE electromyogram (EMG) Today F41.1 - Generalized anxiety disorder, R20.2 - Paresthesia of skin Medications: New ramelteon (Rozerem) 8 mg PO BEDTIME 60 tabs 1RF sleep difficulties 2 months MDD 8mg G47.00 - Insomnia, unspecified, G47.33 - Obstructive sleep apnea (adult) (pediatric) Coding Level of Care Code Est Pt Level 4 (63807) Diagnoses Obstructive sleep apnea G47.33 Insomnia disorder related to known organic factor G47.00 Mild recurrent major depression F33.0 Generalized anxiety disorder F41.1 Paresthesia of hand, bilateral R20.2
[2025-04-10 13:39] VITALS: BP 128/72; PULSE 85; O2SAT 98; BMI 28.2
--- OUTSIDE RECORDS SUMMARY | 2025-04-10 15:47 | XMS_ITS | Clinical Summary ---
Author Organization [facility] Address [address] [place] [address] [place] [address] Phone Care Team Providers Care Director Packaging Name Role Phone Juliet Lopez MEDICAL CASE MANAGER Unavailable [phone] Aline Serrano DO Unavailable Tabitha Fabian Primary Care Provider [phone] Allergies Active Allergy Reactions Criticality Noted Date Comments Methylphenidate Hcl 05/30/2013 Other Reaction(s): vocal tic and drowsy Medications lisinopril (PRINIVIL,ZESTRI L) 10 MG tablet Take 1 tablet by mouth every morning. 11/26/2024 Active sertraline (ZOLOFT) 100 MG tablet Take 1 tablet by mouth every morning. 12/08/2024 Active naproxen (NAPROSYN) 500 MG tablet 500 mg as needed. 05/30/2013 Active Immunizations Immunization Administration Dates Next Due Influenza Quadrivalent MDCK Preservative Free IM 04/28/2022 Influenza Quadrivalent Preservative Free IM 06/17 Tdap 10/29/2022,04/02/2013 Social History Tobacco Use Types Packs/Day Years [...] on file Sexual Orientation Not on file Last Filed Vital Signs Vital Sign Reading Time Taken Comments Blood Pressure 142/84 12/27/2024 3:03 PM EDT Pulse 97 12/27/2024 3:03 PM EDT Temperature 36.9 C (98.5 F) 12/27/2024 3:03 PM EDT Respiratory Rate 18 12/27/2024 3:03 PM EDT Oxygen Saturation 100% 12/27/2024 3:03 PM EDT Inhaled Oxygen Concentration - - Weight 73.4 kg (161 lb 12.8 oz) 05/30/2013 2:00 AM EST Height 173.4 cm (5' 8.25 ) 05/30/2013 2:00 AM ES T Body Mass Index 24.42 05/30/2013 2:00 AM EST Plan of Treatment Health Maintenance Due Date Last Done Comments CREATININE LEVEL 1986 LIPID PANEL 1986 POTASSIUM LEVEL 1986 DEPRESSION SCREENING 1998 HEPATITIS C SCREENING 2004 HIV ONE-TIME SCREENING (18-6 5 YEARS) 2004 INFLUENZA VACCINE (#1) 2025 , 06/30/2021 COVID-19 VACCINE (3 - 2024-2 6 season) 2025 04/28/2022, 06/30/2021 Adult Td,Tdap Booster 10/29/2032 10/29/2022 , 04/02/2013 SMOKING STATUS SCREENING (On ce After 26 Yrs) Completed 12/27/2024 HEPATITIS A VACCINES Aged Out No long er eligible based on patient's age to complete this topic HIB VACCINES Aged Out No longer eligi ble based on patient's age to complete this topic MENINGOCOCCAL VACCINES (ACWY) Aged Out No longer eligible based on patient's age to complete this topic MENINGOCOCCAL VACCINES (B) Aged Out N o longer eligible based on patient's age to complete this topic PNEUMOCOCCAL VACCINES (0-49 years) Aged Out No longer eligible b ased on patient's age to complete this topic Medical Devices Not on file Insurance WELLSENSE NON NSPG PCP SILVER CLARITY CONNECTORCARE WELLSENSE NON NSPG PCP SILVER CLARITY CONNECTORCARE WELL[employer] NON NSPG PCP SILVER CLARITY CONNECTORCARE WELLSENSE NON NSPG PCP SILVER CLARITY CONNECTORCARE WELLSENSE NON NSPG PCP SILVER CLARITY CONNECTORCARE WELLSENSE NON NSPG PCP SILVER CLARITY CONNECTORCARE Care Teams Director Packaging Relationship Specialty Start Date End Date Tabitha Fabian PA [address] [place] [address] PCP - General Physician Animal Doctor 12/27/24 Juliet Lopez NP [address] [place] [address] Historical LMR Provider 05/04/17 Aline Serrano DO [address] [place] [address] [address] [place] [address] [email or web address] Historical LMR Provider 05/04/17 Additional Source Comments The information contained in this document represents components of the legal health record. It is not the complete legal health record.[facility]
== END 2025-04-10 14:33 | disposition home or self-care (01) ==
LOC: HO.HSMC 13:23
PROVIDERS: PCP Physician Assistant; Visit Provider Physician Assistant Medical
DX: G47.33 Obstructive sleep apnea (adult) (pediatric) (principal); G47.00 Insomnia, unspecified; F33.0 Major depressive disorder, recurrent, mild; F41.1 Generalized anxiety disorder; R20.2 Paresthesia of skin
CPT/HCPCS: 99214

== ENCOUNTER → 2025-04-10 13:22 | Outpatient (BNVA) | payer OTHER, SELFPAY | PROVIDERS: PCP Physician Assistant; Visit Provider Physician Assistant Medical | DX: G47.33 Obstructive sleep apnea (adult) (pediatric) (principal); G47.00 Insomnia, unspecified; R20.2 Paresthesia of skin; F33.0 Major depressive disorder, recurrent, mild; F41.1 Generalized anxiety disorder; Z99.89 Dependence on other enabling machines and devices | CPT/HCPCS: 99212 ==